=== PATIENT | female | born 1945 | race Caucasian/White ===

== ENCOUNTER 2025-01-19 19:39 | Emergency (ER) | payer MEDICARE, BC ==
[~2025-01-19] VITALS: Ht 162.6 cm; Wt 55.0 kg
[2025-01-19 19:55] VITALS: O2SAT 99
[2025-01-19] MEDS: BACITRACIN ZINC OINT UDPKT TOP ONE (21:33)
[2025-01-19] MEDS: LIDOCAINE HCL 1% 20ML VIAL INFIL ONE (21:33)
[2025-01-19] MEDS: ACETAMINOPHEN 325MG TABLET PO ONE (21:33)
[2025-01-19 22:38] VITALS: BP 138/78; PULSE 72; RESP 18; TEMP 36.8; O2SAT 100
== END 2025-01-19 23:08 | disposition home or self-care (01) ==
LOC: ER 19:39
DX: S01.111A Laceration without foreign body of right eyelid and periocular area, initial encounter (principal); S16.1XXA Strain of muscle, fascia and tendon at neck level, initial encounter; W19.XXXA Unspecified fall, initial encounter; Y93.89 Activity, other specified; Y92.89 Other specified places as the place of occurrence of the external cause; Y99.8 Other external cause status
CPT/HCPCS: 99284; 70450; 70486; 72125; 12011; J2003